=== PATIENT | male | born 1990 | race Caucasian/White ===

== ENCOUNTER 2018-04-14 04:53 | Emergency (ER) | payer OTHER ==
[2018-04-14] MEDS ORDERED: ACETAMINOPHEN 500 MG TAB PO ONE (05:13)
[2018-04-14] MEDS ORDERED: NS 1,000 ML IV ONE ×2 (05:14→06:06)
--- NOTE | 2018-04-14 05:28 | EDPHY ---
H & P Stated Complaint: Chills and watery diarrhea Time Seen by Provider: 04/14/18 05:15 HPI/ROS: 27-year-old male presents complaining of 48 hr of diarrhea, fevers and chills. He has not noticed blood or mucus in his diarrhea. He has some minor crampy abdominal pain just prior to having a bowel movement. Otherwise no abdominal pain. No nausea no vomiting. Pt attended a 3 day for his father in law this weekend where it is the custom to eat and entire cow, and it concerned he could have been exposed to something. No other family members are ill. No recent antibiotics. Review of systems As per HPI General positive fever positive chills no weakness HEENT no eye pain no eye discharge. No eye redness, no sore throat Respiratory no cough, no shortness of breath Cardiac no chest pain, no peripheral edema GI positive abdominal pain, no diarrhea, no constipation, no nausea, no vomiting no flank pain, no hematuria, no dysuria Musculoskeletal no myalgias, no joint pain Heme no easy bruising, no easy bleeding Endo no polyuria, no polydipsia Skin no rashes, no pruritus Neuro no syncope, no dizziness, no headaches Psych is no suicidal ideation, no homicidal ideation Source: Patient Exam Limitations: No limitations - Personal History Current Tetanus/Diphtheria Vaccine: Unsure Current Tetanus Diphtheria and Acellular Pertussis (TDAP): Unsure - Medical/Surgical History Hx Asthma: No Hx Chronic Respiratory Disease: No Hx Diabetes: No Hx Cardiac Disease: No Hx Renal Disease: No Hx Cirrhosis: No Hx Alcoholism: No Hx HIV/AIDS: No Hx Splenectomy or Spleen Trauma: No Other PMH: appendectomy. - Family History Significant Family History: No pertinent family hx - Social History Smoking Status: Never smoked Alcohol Use: None Drug Use: None - Physical Exam Exam: 27 yo M alert and oriented , non toxic appearance, febrile 38 HEENT atraumatic normocephalic, extraocular muscles intact, anicteric Oropharynx negative for erythema negative exudate, tolerating her own secretions Neck supple no meningismus Lungs clear to auscultation bilaterally Heart regular rate and rhythm without murmur rub or gallop, rate 110 Abdomen nondistended normoactive bowel sounds soft nontender Back no CVA tenderness, no step-offs, no spinal tenderness Extremities no cyanosis clubbing or edema Neuro alert and oriented, no focal deficits Constitutional: Initial Vital Signs Temperature (C) 38.2 C 04/14/18 05:02 Heart Rate 103 H 04/14/18 05:02 Respiratory Rate 18 04/14/18 05:02 Blood Pressure 149/74 H 04/14/18 05:02 O2 Sat (%) 94 04/14/18 05:02 O2 Delivery Mode Room Air Allergies/Adverse Reactions: orange juice [oranges] Allergy (Intermediate, Verified 04/14/18 05:02) Rash Home Medications: Medication Instructions Recorded NK [No Known Home Meds] 04/14/18 Medical Decision Making ED Course/Re-evaluation: Patient seen and evaluated for diarrhea of 48 hr duration, fevers and chills. IV established Patient given 2 L normal saline CBC within normal limits Lactate normal CMP within normal limits Stool sent for GI pathogen panel Impression Infectious diarrhea Plan Symptomatic, supportive care-rest, drink plenty of liquids, acetaminophen as needed for fever Follow-up with primary care physician Given work note Advised to return for severe pain, vomiting or signs of dehydration Differential Diagnosis: Differential diagnosis considered but not limited to: gastroenteritis, infectious diarrhea - Data Points Laboratory Results: 04/14/18 04/14/18 05:34 05:31 POC Sodium 137 mEq/L mEq/L (135-145) POC Potassium 3.8 mEq/L mEq/L (3.3-5.0) POC Chloride 106.0 mEq/L mEq/L (97-110) POC Total CO2 23 mEq/L mEq/L (22-31) POC BUN 11 mg/dL mg/dL (7-23) POC Creatinine 0.6 mg/dL L mg/dL (0.7-1.3) POC Glucose 122 mg/dL H mg/dL (70-100) POC Lactic Acid Frank 1.0 mmol/L mmol/L (0.7-2.1) POC Calcium 9.3 mg/dL mg/dL (8.5-10.4) POC Total Bilirubin 0.7 mg/dL mg/dL (0.1-1.4) POC AST 42 IU/L IU/L (17-59) POC ALT 54 IU/L IU/L (21-72) POC Alk Phosphatase 66 IU/L IU/L (38-126) POC Total Protein 7.1 g/dL g/dL (6.3-8.2) POC Albumin 3.6 g/dL g/dL (3.5-5.0) Medications Given: Discontinued Medications Acetaminophen (Tylenol) 1,000 mg PO EDNOW ONE Stop: 04/14/18 05:14 Last Admin: 04/14/18 05:30 Dose: 1,000 mg Sodium Chloride (Ns) 1,000 mls @ 0 mls/hr IV ONCE ONE PRN Reason: Wide Open Stop: 04/14/18 05:15 Last Admin: 04/14/18 05:30 Dose: 1,000 mls Sodium Chloride (Ns) 1,000 mls @ 0 mls/hr IV EDNOW ONE; Wide Open PRN Reason: Protocol Stop: 04/14/18 06:07 Last Admin: 04/14/18 06:07 Dose: 1,000 mls Point of Care Test Results: CBC CBC Collection Date 04/14/18 CBC Collection Time 05:25 WBC 5.9 RBC 4.57 HGB 14 HCT 40.5 PLT 178 Neut # 4.9 Neut 83.6 LYMPH # 0.5 LYMPH 7.7 Other WBC # 0.5 Other WBC 8.7 MCV 88.6 Chemistry 04/14/18 05:31 POC Sodium 137 mEq/L mEq/L (135-145) POC Potassium 3.8 mEq/L mEq/L (3.3-5.0) POC Chloride 106.0 mEq/L mEq/L (97-110) POC Total CO2 23 mEq/L mEq/L (22-31) POC BUN 11 mg/dL mg/dL (7-23) POC Creatinine 0.6 mg/dL L mg/dL (0.7-1.3) POC Glucose 122 mg/dL H mg/dL (70-100) POC Calcium 9.3 mg/dL mg/dL (8.5-10.4) POC Total Bilirubin 0.7 mg/dL mg/dL (0.1-1.4) POC AST 42 IU/L IU/L (17-59) POC ALT 54 IU/L IU/L (21-72) POC Alk Phosphatase 66 IU/L IU/L (38-126) POC Total Protein 7.1 g/dL g/dL (6.3-8.2) POC Albumin 3.6 g/dL g/dL (3.5-5.0) Blood Gas/Lactic Acid-Venous 04/14/18 05:34 POC Lactic Acid Frank 1.0 mmol/L mmol/L (0.7-2.1) Departure - Departure Disposition: Home, Routine, Self-Care Clinical Impression: Infectious diarrhea in adult patient Condition: Good Instructions: Acute Diarrhea (ED) Referrals: Patient,NotPresent [Primary Care Provider] - As per Instructions [facility] [Provider Group] - As per Instructions Stand Alone Forms: Work Excuse
[2018-04-14 07:21] VITALS: BP 122/56
== END 2018-04-14 07:15 | disposition home or self-care (01) ==
LOC: CED 04:53
DX: A04.5 Campylobacter enteritis (principal); A04.4 Other intestinal Escherichia coli infections
CPT/HCPCS: 80053-PO; 83605-PO